=== PATIENT | female | born 1955 | race Caucasian/White ===

== ENCOUNTER 2016-05-01 09:29 | Outpatient (CLI) | payer BC ==
--- NOTE | 2016-05-01 11:40 | DIAGNOSTIC IMAGING REPORT ---
PROCEDURE: MG BILATERAL SCREENING W/CAD INDICATION: Screening. Family history breast carcinoma (sister). TECHNIQUE: Bilateral CC and MLO digital views. COMPARISON: Compared to 04/22/2015, 02/16/2014, and 01/22/2013. FINDINGS: Computer-aided detection applied. Moderately dense. No change. IMPRESSION: 1. Negative mammogram RESULT CODE: 1- Negative. A. A negative report should not delay biopsy if a dominant or clinically suspicious mass is present. 10-15% of cancers are not identified by x-ray. B. A negative report may reinforce clinical impression. C. Adenosis and dense breasts may obscure an underlying neoplasm. D. False positive reports average 6-10%. E.. A yearly screening mammogram is recommended. A reminder letter will be scheduled.
[2016-05-28] MEDS ORDERED: ATORVASTATIN CA20 MG PO (12:53)
[2016-05-28] MEDS ORDERED: VITAMIN D-31000 UNIT PO (16:41)
[2016-05-28] MEDS ORDERED: SUPER B COMPLEX MAXI PO (16:42)
[2016-05-28] MEDS ORDERED: FISH OIL1000 MG PO (16:43)
[2016-05-28] MEDS ORDERED: CALCIUM CITRATE PLUS (16:45)
[2016-05-28] MEDS ORDERED: COQ10200 MG PO (16:46)
== END 2016-05-01 23:00 ==
LOC: MAM SRH 09:29
DX: Z12.31 Encounter for screening mammogram for malignant neoplasm of breast (principal); Z80.3 Family history of malignant neoplasm of breast

== ENCOUNTER 2016-05-31 06:40 | Day surgery (SDC) | payer BC ==
[~2016-05-31] VITALS: Ht 162.6 cm; Wt 74.6 kg
[~2016-05-31 06:40] MED LIST: ATORVASTATIN CA20 MG PO; CALCIUM CITRATE PLUS; COQ10200 MG PO; FISH OIL1000 MG PO; SUPER B COMPLEX MAXI PO; VITAMIN D-31000 UNIT PO
--- NOTE | 2016-05-31 08:17 | Provider's Discharge Care Plan ---
Problem, Goal, Plan Problem List 1. S/P colonoscopy Goals: Screening Instructions: Follow up as needed, Take meds as directed, high fiber diet
--- NOTE | 2016-05-31 08:17 | Provider's Discharge Care Plan ---
Problem, Goal, Plan Problem List 1. S/P colonoscopy Goals: Screening Instructions: Follow up as needed, Take meds as directed, high fiber diet
[2016-05-31 10:06] VITALS: BP 129/94
--- NOTE | 2016-05-31 10:58 | OPERATIVE REPORT ---
DATE OF SURGERY: 05/31/2016 SURGEON: Kaz Scott III, MD [employer] P[employer]ER: None. PREOPERATIVE DIAGNOSIS: 1. Screening colonoscopy POSTOPERATIVE DIAGNOSIS: 1. Normal colonoscopy PROCEDURE PERFORMED: 1. Colonoscopy ANESTHESIA: TIVA. INDICATIONS: The patient is a 60-year-old female who approximately 10 years ago underwent colonoscopy which was reported to her as normal. She is asymptomatic. No family history of Crohn disease, ulcerative colitis or colon cancer. SURGICAL FINDINGS: Normal-appearing cecum, ascending, transverse, descending colon, sigmoid colon, and rectal vault. SURGICAL TECHNIQUE: The patient was brought to the operating room and placed in the left lateral decubitus position, where she was administered TIVA and monitored closely by anesthesia. After proper anesthesia had taken effect, a digital rectal examination revealed no masses or stenosis. This was followed by the passage of a fiberoptic video flexible Olympus colonoscope which, without difficulty, negotiated to the cecum. The cecum was identified by anatomical landmarks and anterior abdominal wall ballottement. On withdrawing the scope, the aforementioned findings noted. The scope was withdrawn, retroflexed, good view of the rectal vault obtained. No pathology identified. The scope was completely withdrawn. The patient tolerated the procedure well and was transferred to the recovery room in stable condition. There were no intraoperative or anesthetic complications.
== END 2016-05-31 10:01 | disposition home or self-care (01) ==
LOC: OR SRH 06:40 → SCU SRH 06:40 → OR SRH 07:30
PROVIDERS: Specialist
PROC: 0DJD8ZZ Inspection of Lower Intestinal Tract, Via Natural or Artificial Opening Endoscopic (ICD-10-PCS; principal; 2016-05-31 08:15)
DX: Z12.11 Encounter for screening for malignant neoplasm of colon (principal)
CPT/HCPCS: 29229; 29240; 50004; 60001; 83526

== ENCOUNTER 2016-07-03 16:01 | Outpatient (CLI) | payer BC ==
--- NOTE | 2016-07-03 16:51 | DIAGNOSTIC IMAGING REPORT ---
PROCEDURE: XR HIP 2VW W W/O AP PELVIS-LT INDICATION: HIP JOINT PAIN LEFT TECHNIQUE: AP view of the pelvis and hips with lateral view of the left hip. COMPARISON: None. FINDINGS: Left HIP: Osseous structures and joint spaces are normal. PELVIS: Osseous pelvis is normal. IMPRESSION: 1. Negative pelvis and left hip.
== END 2016-07-03 23:00 | disposition home or self-care (01) ==
LOC: XR SRH 16:01
DX: M25.552 Pain in left hip (principal)